=== PATIENT | female | born 1990 | race Caucasian/White ===

== ENCOUNTER 2016-12-24 21:54 | Emergency (ER) | payer SELFPAY ==
[~2016-12-24] VITALS: Ht 167.6 cm; Wt 72.0 kg
[2016-12-24 22:05] VITALS: Ht 167.6 cm; Wt 72.0 kg
[2016-12-25] MEDS ORDERED: ONDANSETRON 4 MG INJ IV STA (00:01)
[2016-12-25] MEDS ORDERED: SOD CHLORIDE 0.9% 1,000 ML IV STA (00:01)
[2016-12-25] MEDS ORDERED: KETOROLAC 30 MG INJ IV STA (00:01)
[2016-12-25 00:35] LABS: URINE BLOOD (Dip) POC Negative (NEGATIVE)
[2016-12-25 00:55] LABS: ADD SCAN DIFF NO
[2016-12-25 00:57] LABS: BASOPHILS % 0.5 % (0.0-2.0); EOSINOPHILS % 0.5 % (0.0-7.0); HEMATOCRIT 42.8 % (37.0-47.0); HEMOGLOBIN 14.2 g/dl (12.0-16.0); LYMPHOCYTES # 1.5 10^3/ul (0.8-2.9); MEAN CORPUSCULAR HEMOGLOBIN 31.6 pg (29.0-33.0); MEAN CORPUSCULAR HGB CONC 33.2 g/dl (32.0-37.0); MEAN CORPUSCULAR VOLUME 95.3 fl (82.0-101.0); MEAN PLATELET VOLUME 10.8 fl (7.4-10.4); MONOCYTE # 0.4 10^3/ul (0.3-0.9); MONOCYTES % 5.3 % (0.0-11.0); NEUTROPHIL # 5.9 10^3/ul (1.6-7.5); NEUTROPHILS % 74.4 % (39.0-77.0); PLATELET COUNT 223 10^3/UL (140-415); RED BLOOD COUNT 4.49 10^6/ul (4.20-5.40); RED CELL DISTRIBUTION WIDTH 11.8 % (11.5-14.5)
[2016-12-25 01:04] LABS: ADD UMIC YES; URINE BILIRUBIN (Dip) NEGATIVE (NEGATIVE); URINE BLOOD (Dip) NEGATIVE (NEGATIVE); URINE COLOR YELLOW (YELLOW); URINE GLUCOSE (Dip) NEGATIVE (NEGATIVE); URINE KETONES (Dip) 3+ (NEGATIVE); URINE LEUKOCYTE ESTERASE (Dip) NEGATIVE (NEGATIVE); URINE NITRITE (Dip) NEGATIVE (NEGATIVE); URINE TOTAL PROTEIN (Dip) 1+ (NEGATIVE); URINE UROBILINOGEN (Dip) 0.2 E.U./dL (0.1-1.0)
[2016-12-25 01:21] LABS: POTASSIUM 3.7 mmol/L (3.5-5.1)
[2016-12-25 01:22] LABS: ALBUMIN 4.9 g/dl (3.3-4.9); ALBUMIN/GLOBULIN RATIO 1.25; BILIRUBIN,INDIRECT 0.5 mg/dl (0-1.1); BILIRUBIN,TOTAL 0.5 mg/dl (0.2-1.3); CALCIUM 9.9 mg/dl (8.4-10.2); CREATININE 0.61 mg/dl (0.44-1.00); TOTAL PROTEIN 8.8 g/dl (6.1-8.1)
[2016-12-25 02:00] LABS: BACTERIA,URINE MANY; SQUAMOUS EPITHELIAL CELL,UR FEW; URINE RBCS 0-2 /HPF (0)
--- NOTE | 2016-12-25 02:20 | RADRPT ---
PROCEDURE: Left knee x-ray CLINICAL INDICATION: Trauma TECHNIQUE: AP, cross stable lateral and oblique views of the left knee were obtained. COMPARISON: None FINDINGS: There is normal mineralization. No acute fracture or dislocation is seen. There is no joint effusion. There is no significant soft tissue swelling. IMPRESSION: Normal x-ray of the left knee. RPTAT: HJES .Davis Sheridan MD, MD Date Time Electronically viewed and signed by .Davis Sheridan MD, on 12/25/2016 02:20 .S/
--- NOTE | 2016-12-25 02:36 | ERD ---
ER Documentation Chief Complaint Date/Time DATE: 12/25/16 TIME: 02:34 Chief Complaint FLU like symptom with nausea and vomiting since this morning HPI Patient is a 26-year-old female who is otherwise healthy presents complaining of abdominal pain with nausea and vomiting as well as diarrhea. She thinks is secondary to something she ate last night. She denies fever. Denies hematuria , dysuria, or increased urinary frequency. Her last menstrual period was November 28. Pain is generalized throughout the abdomen and is throbbing in nature. She is also complaining of left knee pain secondary to a fall she had 2 weeks ago. She states she is unable to put weight on it. ROS All systems reviewed and are negative except as per history of present illness. Allergies Allergies: Coded Allergies: No Known Allergy (Unverified , 12/24/16) PMhx/Soc History of Surgery: Yes (NASAL SX SEC TO SINUS PROBLEMS.) Anesthesia Reaction: No Hx Neurological Disorder: No Hx Respiratory Disorders: No Hx Cardiac Disorders: No Hx Psychiatric Problems: No Hx Miscellaneous Medical Probl: No Hx Alcohol Use: No Hx Substance Use: No Hx Tobacco Use: No Smoking Status: Never smoker FmHx Family History: No diabetes Physical Exam Vitals Vital Signs Date Time Temp Pulse Resp B/P Pulse Ox O2 Delivery O2 Flow Rate FiO2 12/24/16 22:05 98.5 87 20 122/78 97 Physical Exam General: well developed, well nourished, alert, nontoxic, no distress Head: normocephalic, atraumatic Neck: Supple, nontender, no lymphadenopathy, no midline tenderness Oropharynx: no tonsilar erythema or edema, uvula midline, no exudates, no kissing tonsils, no drooling Respiratory: Clear to auscaultation bilaterally, speaks in full sentences, no use of accesory muscles or labored breathing, no rales, ronchi, or wheezing Cardiovascular: RRR, No murmurs GI: soft, non tender, non distended, negative murphys sign, negative mcburneys point tenderness, no cva tenderness bilaterally, no rebound or guarding Back: no midline tenderness, no step offs or bony abnormalities, sensation to light touch in tact Extremities: moving all extremities normally, normal gait, no edema, left knee: No erythema, no edema, full range of motion, no bony abnormalities, popliteal pulse 2+, sensation to light touch intact throughout S Result Diagram: 12/25/16 0015 12/25/16 0015 Results 24 hrs Laboratory Tests Test 12/25/16 00:15 12/25/16 00:31 12/25/16 00:36 White Blood Count 8.010^3/ul Red Blood Count 4.4910^6/ul Hemoglobin 14.2g/dl Hematocrit 42.8% Mean Corpuscular Volume 95.3fl Mean Corpuscular Hemoglobin 31.6pg Mean Corpuscular Hemoglobin Concent 33.2g/dl Red Cell Distribution Width 11.8% Platelet Count 72702^3/UL Mean Platelet Volume 10.8fl Neutrophils % 74.4% Lymphocytes % 19.0% Monocytes % 5.3% Eosinophils % 0.5% Basophils % 0.5% Nucleated Red Blood Cells % 0.0/100WBC Neutrophils # 5.910^3/ul Lymphocytes # 1.510^3/ul Monocytes # 0.410^3/ul Eosinophils # 0.010^3/ul Basophils # 0.010^3/ul Nucleated Red Blood Cells # 0.010^3/ul Sodium Level 141mmol/L Potassium Level 3.7mmol/L Chloride Level 104mmol/L Carbon Dioxide Level 26mmol/L Anion Gap 15 Blood Urea Nitrogen 12mg/dl Creatinine 0.61mg/dl Glucose Level 88mg/dl Calcium Level 9.9mg/dl Total Bilirubin 0.5mg/dl Direct Bilirubin 0.00mg/dl Indirect Bilirubin 0.5mg/dl Aspartate Amino Transf (AST/SGOT) 49IU/L Alanine Aminotransferase (ALT/SGPT) 31IU/L Alkaline Phosphatase 59IU/L Total Protein 8.8g/dl Albumin 4.9g/dl Globulin 3.90g/dl Albumin/Globulin Ratio 1.25 Lipase 43U/L Urine Color YELLOW Urine Clarity CLEAR Urine pH 5.5 Urine Specific [place] >=1.030 Urine Ketones 3+ Urine Nitrite NEGATIVE Urine Bilirubin NEGATIVE Urine Urobilinogen 0.2 E.U./dL Urine Leukocyte Esterase NEGATIVE Urine Microscopic RBC 0-2/HPF Urine Microscopic WBC 0-2/HPF Urine Squamous Epithelial Cells FEW Urine Bacteria MANY Urine Hemoglobin NEGATIVE Urine Glucose NEGATIVE% Urine Total Protein 1+ Bedside Urine pH (LAB) 6.0 Bedside Urine Protein (LAB) 2+ Bedside Urine Glucose (UA) Negative Bedside Urine Ketones (LAB) 4+ Bedside Urine Blood Negative Bedside Urine Nitrite (LAB) Negative Bedside Urine Leukocyte Esterase (L Negative Current Medications Medications (Trade) Dose Ordered Sig/Doug Route PRN Reason Start Time Stop Time Status Last Admin Dose Admin Sodium Chloride (NS) 1,000 ml @ 1,000 mls/hr Q1H STAT IV 12/25/16 00:01 12/25/16 01:00 DC 12/25/16 00:39 Ondansetron HCl (Zofran Inj) 4 mg ONCE STAT IV 12/25/16 00:01 12/25/16 00:06 DC 12/25/16 00:39 Ketorolac Tromethamine (Toradol) 30 mg ONCE STAT IV 12/25/16 00:01 12/25/16 00:06 DC 12/25/16 00:40 Procedures/MDM Patient presents with abdominal pain which started after eating some food yesterday. Her GI examination is normal she has no tenderness throughout her abdomen including over her appendix over her gallbladder. She has no CVA tenderness. Her labs show dehydration which she was given fluids and Zofran and Toradol with improvement of her symptoms. The rest of her labs are unremarkable. She was given copies of them all. X-ray of her knee was also unremarkable. She was given crutches and Osvaldo wrap as well as prescription for Zofran, and anti-inflammatories. Recommended this patient follow up with her primary care doctor within 48 hours or return to the emergency room for any worsening of symptoms. However this time I do believe there is suitable for outpatient management. I answered all their questions and they agreed with the plan and were discharged home. Departure Diagnosis: Primary Impression: Abdominal pain Additional Impression: Knee pain Condition: Stable JULISSA ULRICH PA-C December 25, 2016 02:36
[2016-12-25] MEDS ORDERED: IBUP-1542 PO (02:37)
[2016-12-25] MEDS ORDERED: ONDA4TAB14 PO (02:37)
[2016-12-25 03:14] VITALS: BP 130/69; PULSE 78; RESP 20; TEMP 98.3
== END 2016-12-25 03:15 | disposition home or self-care (01) ==
LOC: FTE 21:54
DX: R10.84 Generalized abdominal pain (principal); M25.562 Pain in left knee
CPT/HCPCS: 36415; 73562; 80053; 81001; 83690; 85025; 96374; 96375; 99284; J1885; J2405; J7030; 81003

== ENCOUNTER 2017-08-05 16:36 | Emergency (ER) | END 2017-08-05 20:00 | disposition home or self-care (01) ==

== ENCOUNTER 2017-09-13 21:40 | Emergency (ER) | END 2017-09-14 00:07 | disposition left against medical advice (07) ==

== ENCOUNTER 2017-09-30 09:53 | Emergency (ER) | END 2017-09-30 13:10 | disposition home or self-care (01) ==

== ENCOUNTER 2017-12-13 16:26 | Emergency (ER) | END 2017-12-13 18:00 | disposition home or self-care (01) ==

== ENCOUNTER 2017-12-25 11:52 | Emergency (ER) | END 2017-12-25 13:30 | disposition home or self-care (01) ==